=== PATIENT | female | born 1945 | race American Indian/Alaskan Native ===

== ENCOUNTER 2016-09-24 13:55 | Emergency (ER) | payer MEDICARE ==
[2016-09-24 15:14] LABS: Basophils % (Auto) 0.1 % (0.0-1.8); Eosinophils % (Auto) 0.1 % (0.0-4.3); Hematocrit 34.9 % (30.3-42.9); Hemoglobin 11.5 gm/dl (10.1-14.3); Mean Corpuscular HGB Conc 33 % (30-34); Mean Corpuscular Hemoglobin 27 pg (28-32); Mean Corpuscular Volume 83 fl (79-97); Platelet Count 250 K/mm3 (140-440); Red Blood Count 4.23 M/mm3 (3.65-5.03); Red Cell Distribution Width 14.6 % (13.2-15.2); White Blood Count 15.7 K/mm3 (4.5-11.0)
--- NOTE | 2016-09-24 15:26 | XRay Report ---
Chest 2 views: Compared to 12/13/15. History: Shortness of breath. Findings: Normal cardiomediastinal silhouette. Trachea is midline. No consolidation, pneumothorax or pleural effusion. Impression: No acute cardiopulmonary findings.
[2016-09-24 15:32] LABS: Anion Gap 18 mmol/L; BUN/Creatinine Ratio 25.55; Blood Urea Nitrogen 23 mg/dL (7-17); Calcium 9.6 mg/dL (8.4-10.2); Carbon Dioxide 27 mmol/L (22-30); Chloride 98.8 mmol/L (98-107); Glucose 109 mg/dL (65-100); Sodium 140 mmol/L (137-145)
[2016-09-24 17:17] VITALS: BP 183/88
[2016-09-24] MEDS ORDERED: MORPHINE IM ONE (17:23)
[2016-09-24] MEDS ORDERED: ZOFRAN ODT PO ONE (17:24)
--- NOTE | 2016-09-24 17:29 | Emergency Department Report ---
HPI - General Chief Complaint: High BP Time Seen by Provider: 09/24/16 17:05 - HPI HPI: The patient is a 70-year-old female with a history of chronic neck pain, who presents for evaluation recurrence of neck pain. The patient states that for the past 5 days she has experienced constant pain to the lower posterior neck and upper back, 10/10 in severity, sharp in quality, radiating into the left and right shoulders, exacerbated with movement of the shoulders bilaterally. She denies recent trauma to the neck or shoulders, paresthesias, motor deficit in the arms or legs, neck stiffness, chest pain, dyspnea, chills, night sweats, fever. ED Past Medical Hx - Past Medical History Hx Hypertension: Yes Hx Deep Vein Thrombosis: Yes Hx Pulmonary Embolism: Yes Hx Asthma: Yes Hx HIV: No Additional medical history: has filter for clots - Surgical History Additional Surgical History: filter placement, C-spine surgery. part intestines removed. hysterectomy - Social History Smoking Status: Never Smoker Substance Use Type: None - Medications Home Medications: Home Medications Medication Instructions Recorded Confirmed Last Taken Type ALBUTEROL Inhaler [ProAir HFA 2 puff IH QID PRN 12/13/15 12/13/15 Unknown History Inhaler] Fluticasone (Nf) [Flovent 220 2 puff IH BID 12/13/15 12/13/15 Unknown History MCG/PUFF HFA] Valsartan/Hydrochlorothiazide 1 tab PO QDAY 12/13/15 12/13/15 Unknown History [Diovan Hct 160-12.5 mg] Apixaban [Eliquis] 10 mg PO Q12HR #30 day 12/15/15 Unknown Rx Budesonide [Pulmicort Respules] 1 mg IH Q12HRT #30 nebu 12/15/15 Unknown Rx Ipratropium/Albuterol Sulfate 1 ampul IH Q4HR PRN #30 ampul.neb 12/15/15 Unknown Rx [Duoneb 0.5 mg-3 mg/3 ml Soln] Pantoprazole [Protonix TAB] 40 mg PO QDAY #30 tablet 12/15/15 Unknown Rx methylPREDNISolone [Medrol Dose 1 mg PO DAILY #1 pack 12/15/15 Unknown Rx Shashank] Cyclobenzaprine HCl [Flexeril 5 MG 5 mg PO Q8HR PRN #12 tab 09/24/16 Unknown Rx TAB] ED Review of Systems ROS: Stated complaint: HIGH BP/NECK PAIN Other details as noted in HPI Constitutional: denies: fever ENT: denies: throat or neck pain Respiratory: denies: cough, shortness of breath Cardiovascular: denies: chest pain Endocrine: denies unexplained weight loss or gain Gastrointestinal: denies: abdominal pain, nausea Genitourinary: denies: dysuria Musculoskeletal: reports neck pain Skin: denies: rash Neurological: denies: headache Hematological/Lymphatic: denies: easy bleeding or easy bruising Psych: denies sadness or hopelessness Physical Exam - Physical Exam Vital Signs: Vital Signs 09/24/16 09/24/16 14:37 17:15 Temperature 98.6 F Pulse Rate 79 74 Respiratory 18 16 Rate Blood Pressure 203/104 Blood Pressure 183/88 [Left] O2 Sat by Pulse 99 100 Oximetry Physical Exam: General: well-nourished, well-developed, no acute distress Head: Normocephalic, atraumatic Eyes: normal sclera ENT: Mucous membranes are pink and moist Neck: trachea midline, neck supple, No neck stiffness, bilateral lower cervical paraspinal musculature tenderness to palpation present, no midline cervical spine tenderness, no spinous step-off or obvious deformity, no redness, ecchymosis, swelling, fluctuance, or crepitus Respiratory: Breath sounds equal bilaterally, no wheezing, rales, or rhonchi Cardio: S1 and S2 present, no murmurs, rubs, gallops, capillary refill is brisk Abdomen: Normoactive bowel sounds, soft abdomen, no tenderness Musc: Bilateral caudal medial upper trapezius tenderness to palpation present Skin: No rash Neuro: alert, normal speech Psych: Normal affect ED Course Vital Signs 09/24/16 09/24/16 14:37 17:15 Temperature 98.6 F Pulse Rate 79 74 Respiratory 18 16 Rate Blood Pressure 203/104 Blood Pressure 183/88 [Left] O2 Sat by Pulse 99 100 Oximetry ED Medical Decision Making - Lab Data Result diagrams: 09/24/16 14:55 09/24/16 14:55 - Medical Decision Making The patient was seen and examined by myself. The patient is placed on a night monitor and continuous pulse ox. On initial evaluation, the patient was found to be in no distress. No findings on exam concerning for spinal stenosis, epidural abscess, or cervical radiculopathy at this time. As the patient has no midline tenderness on exam, no neuro deficits, and no findings concerning for emergent etiology of her neck and back pain, imaging will not be obtained at this time. The patient is given an IM dose of morphine for her pain and a tablet of clonidine for her elevated blood pressure. On reexamination the patient's blood pressure was found to decrease outside of range concerning for hypertensive emergency. The patient is stable for discharge with outpatient follow-up. The patient is given follow-up and return instructions. The patient expressed understanding and agreed with the plan. The patient is discharged in stable condition. Critical care attestation.: If time is entered above; I have spent that time in minutes in the direct care of this critically ill patient, excluding procedure time. ED Disposition Clinical Impression: Hypertensive urgency, Acute neck pain, Muscle strain, Acute upper back pain Disposition: DISCHARGED TO HOME OR SELFCARE Is pt being admited?: No Does the pt Need Aspirin: No Condition: Stable Instructions: Hypertension (ED), Muscle Strain (ED) Additional Instructions: Do not take more than the prescribed dose of flexeril/pain medicine, or combine or take the flexeril/pain medicine prescribed to you today with other pain medicine/narcotics, sleeping medicines, anxiety medications, other sedatives, or with alcohol, as doing so may cause central nervous system sedation and respiratory depression, and potentially cause you to stop breathing and . Additionally, do not drive a vehicle, operate heavy machinery, or engage in any activity that would cause harm to yourself or others if drowsy after taking the flexeril/pain medicine prescribed to you. Prescriptions: Cyclobenzaprine HCl [Flexeril 5 MG TAB] 5 mg PO Q8HR PRN #12 tab PRN Reason: shoulder, back, neck pain Referrals: PRIMARY CARE, [Primary Care Provider] - 3-5 Days Time of Disposition: 17:25
== END 2016-09-24 17:51 | disposition home or self-care (01) ==
LOC: ED 13:55
DX: S16.1XXA Strain of muscle, fascia and tendon at neck level, initial encounter (principal); I10 Essential (primary) hypertension; M54.6 Pain in thoracic spine; J45.909 Unspecified asthma, uncomplicated; Z86.718 Personal history of other venous thrombosis and embolism
CPT/HCPCS: 36415; 71020; 80048; 84484; 85025; 93005; 93010; 96372; 99284; J2270; Q0162

== ENCOUNTER 2017-01-18 11:26 | Emergency (ER) | payer MEDICARE ==
[2017-01-18 12:06] VITALS: BP 140/94
[2017-01-18] MEDS ORDERED: DUONEB *Not for PRN Use IH ONE ×2 (12:10→14:46)
--- NOTE | 2017-01-18 12:10 | Emergency Department Report ---
Chief Complaint: Abdominal Pain Stated Complaint: LEFT FLANK PAIN Time Seen by Provider: 01/18/17 12:07 - HPI History of Present Illness: PT states cough x 1 week. pt has hx of COPD. - ROS Review of Systems: + productive cough, yellow mucus + left low back pain + dysuria - mild - Exam Vital Signs: Vital Signs 01/18/17 12:01 Temperature 98.5 F Pulse Rate 91 H Respiratory 20 Rate Blood Pressure 140/94 O2 Sat by Pulse 100 Oximetry Physical Exam: lungs diminished tianna no acute distress MSE screening note: Focused history and physical exam performed. Due to findings the following was ordered: xr, labs, neb ED Disposition for MSE Condition: Stable Instructions: Abdominal Pain (ED)
[2017-01-18 12:50] LABS: Basophils % (Auto) 0.3 % (0.0-1.8); Eosinophils % (Auto) 0.8 % (0.0-4.3); Hematocrit 35.5 % (30.3-42.9); Hemoglobin 11.6 gm/dl (10.1-14.3); Mean Corpuscular HGB Conc 33 % (30-34); Mean Corpuscular Hemoglobin 28 pg (28-32); Mean Corpuscular Volume 85 fl (79-97); Platelet Count 257 K/mm3 (140-440); Red Blood Count 4.19 M/mm3 (3.65-5.03); Red Cell Distribution Width 14.7 % (13.2-15.2); White Blood Count 10.6 K/mm3 (4.5-11.0)
[2017-01-18 12:55] LABS: Alanine Aminotransferase 13 units/L (7-56); Albumin 3.8 g/dL (3.9-5); Alkaline Phosphatase 86 units/L (35-129); Anion Gap 19 mmol/L; Blood Urea Nitrogen 21 mg/dL (7-17); Calcium 9.1 mg/dL (8.4-10.2); Carbon Dioxide 25 mmol/L (22-30); Chloride 101.4 mmol/L (98-107); Glucose 170 mg/dL (65-100); Lipase 43 units/L (13-60); Potassium 3.7 mmol/L (3.6-5.0); Sodium 142 mmol/L (137-145); Total Protein 7.7 g/dL (6.3-8.2)
[2017-01-18 13:25] LABS: Bacteria,Urine 1+ /HPF (Negative); Bilirubin,Urine NEG (Negative); Blood,Urine NEG (Negative); Ketones,Urine NEG (Negative); Leukocyte Esterase,Urine SM (Negative); Mucus,Urine FEW /HPF; Nitrite,Urine NEG (Negative); Protein,Urine <15 mg/dL mg/dL (Negative); Urobilinogen,Urine < 2.0 mg/dL (<2.0)
--- NOTE | 2017-01-18 13:45 | XRay Report ---
CHEST 2 VIEWS INDICATION: Cough x 1 week. COMPARISON: 09/24/2016 FINDINGS: PA and lateral chest radiographs again demonstrate normal cardiomediastinal silhouette. Mild vertical scarring at the right lung base. Clear remainder lungs without pleural effusions or CHF. Slight aortic knob calcifications. Stable bones with thoracic spondylosis and lower cervical fusion hardware. IVC filter incidentally partially imaged. CONCLUSION: No acute chest process or significant interval change, as described. Thank you for the opportunity to participate in this patient's care.
--- NOTE | 2017-01-31 23:40 | ED Elopement Review ---
ED Pt Elopement review - Results review Lab results: Laboratory Tests 01/18/17 01/18/17 01/18/17 12:23 12:23 Unknown WBC 10.6 RBC 4.19 Hgb 11.6 Hct 35.5 MCV 85 MCH 28 MCHC 33 RDW 14.7 Plt Count 257 Lymph % (Auto) 30.9 Posey % (Auto) 3.8 Eos % (Auto) 0.8 Baso % (Auto) 0.3 Lymph # 3.3 Posey # 0.4 Eos # 0.1 Baso # 0.0 Seg Neutrophils % 64.2 Seg Neutrophils # 6.8 Sodium 142 Potassium 3.7 Chloride 101.4 Carbon Dioxide 25 Anion Gap 19 BUN 21 H Creatinine 1.0 Estimated GFR > 60 BUN/Creatinine Ratio 21.00 Glucose 170 H Calcium 9.1 Total Bilirubin 0.30 AST 19 ALT 13 Alkaline Phosphatase 86 Total Protein 7.7 Albumin 3.8 L Albumin/Globulin Ratio 1.0 Lipase 43 Urine Color Yellow Urine Turbidity Clear Urine pH 5.0 Ur Specific Brick 1.012 Urine Protein <15 mg/dl Urine Glucose (UA) Neg Urine Ketones Neg Urine Blood Neg Urine Nitrite Neg Urine Bilirubin Neg Urine Urobilinogen < 2.0 Ur Leukocyte Esterase Sm Urine WBC (Auto) 4.0 Urine RBC (Auto) 1.0 U Epithel Cells (Auto) 6.0 Urine Bacteria (Auto) 1+ Urine Mucus Few - Call Back decision Pt Call Back Decision: No action required
== END 2017-01-18 22:00 | disposition left against medical advice (07) ==
LOC: ED 11:26
DX: R05 Cough (principal); M54.5 Low back pain; R30.0 Dysuria; Z53.21 Procedure and treatment not carried out due to patient leaving prior to being seen by health care provider
CPT/HCPCS: 36415; 71020; 80053; 81001; 83690; 85025; 94640